=== PATIENT | female | born 1940 | race Caucasian/White ===

== ENCOUNTER → 2018-11-30 | Emergency (ER) | payer OTHER, BC ==
[~2018-11-30] VITALS: Ht 157.5 cm; Wt 66.7 kg
[~2018-11-30] MED LIST: BIEST; BYSTOLIC5 MG; COZAAR100 MG; DEXILANT60 MG; LIPITOR20 MG
== END | disposition left against medical advice (07) ==
LOC: ER 11:07
DX: Z53.20 Procedure and treatment not carried out because of patient's decision for unspecified reasons (principal)